=== PATIENT | male | born 1945 | race Caucasian/White ===

== ENCOUNTER → 2021-11-13 | Day surgery (SDC) | payer MEDICARE ==
[~2021-11-13] VITALS: Ht 177.8 cm; Wt 63.7 kg
[~2021-11-13] MED LIST: ASPIRIN CHEWABL81 MG PO; CARAFATE1 GM PO; CERTAGEN1 EACH PO; CIALIS5 MG PO; DICLOFENAC SODI75 MG PO; DIOVAN40 MG PO; MAG-OXIDE 400M400 MG PO; OMEGA 3 1,0001 EACH PO; OMEPRAZOLE 20MG20 MG PO; PROBIOTIC1 EAC1 PO; PROTONIX 40MG T40 MG PO; REPATHA SU140 MG/1 M IJ; VOLTAREN **OUT75 MG PO
== END | disposition home or self-care (01) ==
LOC: FAS 12:05
DX: K26.9 Duodenal ulcer, unspecified as acute or chronic, without hemorrhage or perforation (principal); K29.80 Duodenitis without bleeding; K29.50 Unspecified chronic gastritis without bleeding; B96.81 Helicobacter pylori [H. pylori] as the cause of diseases classified elsewhere; K31.A0 Gastric intestinal metaplasia, unspecified; K57.30 Diverticulosis of large intestine without perforation or abscess without bleeding; Z80.0 Family history of malignant neoplasm of digestive organs; I10 Essential (primary) hypertension; D64.9 Anemia, unspecified; M06.9 Rheumatoid arthritis, unspecified; F41.9 Anxiety disorder, unspecified; F32.A Depression, unspecified; Z79.82 Long term (current) use of aspirin; Z79.899 Other long term (current) drug therapy; Z88.2 Allergy status to sulfonamides; Z88.8 Allergy status to other drugs, medicaments and biological substances; Z72.89 Other problems related to lifestyle
CPT/HCPCS: J7120